=== PATIENT | female | born 1935 | race Caucasian/White ===

== ENCOUNTER 2019-04-29 12:37 | Inpatient (IN) | payer MEDICARE, MEDICAID ==
[~2019-04-29] VITALS: Ht 165.1 cm; Wt 65.8 kg
[2019-04-29] MEDS ORDERED: SODIUM CHLORIDE 0.9% 500 ML IV ONE (13:08)
[2019-04-29 14:30] LABS: BASOPHILS % 0.8 % (0.0-2.0); EOSINOPHILS % 3.1 % (0.0-5.0); LYMPHOCYTES % 17.4 % (20.0-50.0); MEAN CORPUSCULAR HEMOGLOBIN 28.5 pg (28.0-32.0); MEAN CORPUSCULAR VOLUME 85.9 fL (81.0-99.0); MEAN PLATELET VOLUME 8.1 fl (7.4-10.4); MONOCYTES % 10.8 % (2.0-8.0); NEUTROPHILS % 67.9 % (40.0-76.0); PLATELET 375 x1000/uL (130-400); RED BLOOD CELL COUNT 2.17 mill/uL (4.2-5.4)
[2019-04-29 14:33] LABS: HEMATOCRIT. 18.6 % (36.0-48.0); HEMOGLOBIN. 6.2 g/dL (12.0-16.0)
[2019-04-29 14:37] LABS: CHLORIDE 111 mEq/L (98-107)
[2019-04-29 14:40] LABS: PARTIAL THROMBOPLASTIN TIME 26.4 sec (23.4-31.0); PROTHROMBIN TIME 10.5 sec (9.6-11.0)
[2019-04-29 14:43] LABS: PHOSPHORUS 7.7 mg/dL (2.5-4.9)
[2019-04-29 16:30] VITALS: BP 169/65
[2019-04-29 17:00] VITALS: BP 169/65
[2019-04-29] MEDS ORDERED: NITROGLYCERIN 0.4MG TABLET SL SL PRN ×2 (17:45)
[2019-04-29] MEDS ORDERED: LORAZEPAM 0.5MG TABLET PO PRN (18:00)
[2019-04-29] MEDS ORDERED: IPRATROPIUM/ALBUTEROL 0.5-3(2.5)MG/3ML NEB INH PRN (18:00)
[2019-04-29] MEDS ORDERED: ONDANSETRON HCL 4MG/2ML INJ IV PRN (18:00)
[2019-04-29] MEDS ORDERED: SODIUM CHLORIDE 0.45% 1,000 ML IV SCH (18:00)
[2019-04-29] MEDS ORDERED: DOCUSATE SODIUM 100MG CAPSULE PO PRN (18:00)
[2019-04-29] MEDS ORDERED: ACETAMINOPHEN 325MG TABLET PO PRN (18:00)
[2019-04-29] MEDS ORDERED: ENOXAPARIN 40MG/0.4ML SYR SUBCUT SCH (18:00)
[2019-04-29] MEDS: CALCIUM ACETATE 667MG CAPSULE PO SCH (18:50)
[2019-04-29] MEDS: CLONIDINE 0.1MG TABLET PO PRN ×2 (18:51→23:05)
[2019-04-29] MEDS ORDERED: TRAMADOL 50MG TABLET PO PRN (19:15)
[2019-04-29] MEDS ORDERED: MEDICATION NOT ON FORMULARY EA XX SCH (19:15)
[2019-04-29 20:21] VITALS: BP 161/49
[2019-04-29 20:23] VITALS: BP 156/43
[2019-04-29 20:45] VITALS: BP 170/65
[2019-04-29] MEDS: CARVEDILOL 6.25 MG TABLET PO SCH (21:06)
[2019-04-29 22:50] VITALS: BP 164/57
[2019-04-30] VITALS (11 sets, daily range): BP systolic 105–171; BP diastolic 42–62
[2019-04-30 00:55] LABS: CREATINE KINASE MB FRACTION 1.9 ng/mL (0.5-3.6)
[2019-04-30 07:03] LABS: BASOPHILS % 0.9 % (0.0-2.0); HEMATOCRIT. 22.7 % (36.0-48.0); HEMOGLOBIN. 7.6 g/dL (12.0-16.0); MEAN CORPUSCULAR HEMOGLOBIN 29.2 pg (28.0-32.0); MEAN CORPUSCULAR VOLUME 86.8 fL (81.0-99.0); MEAN PLATELET VOLUME 8.3 fl (7.4-10.4); NEUTROPHILS % 72.1 % (40.0-76.0); PLATELET 294 x1000/uL (130-400); RED BLOOD CELL COUNT 2.61 mill/uL (4.2-5.4); RED CELL DISTRIBUTION WIDTH 16.7 % (11.6-14.6)
[2019-04-30 07:23] LABS: CHLORIDE 116 mEq/L (98-107)
[2019-04-30 07:45] LABS: AMYLASE 90 IU/L (25-115)
[2019-04-30 07:51] LABS: CREATINE KINASE MB FRACTION 1.5 ng/mL (0.5-3.6)
[2019-04-30] MEDS ORDERED: ALLOPURINOL 100 MG TABLET PO SCH (09:00)
[2019-04-30] MEDS: LACTULOSE 20G/30ML UDC PO SCH ×2 (10:00→13:23)
[2019-04-30] MEDS: CALCIUM ACETATE 667MG CAPSULE PO SCH ×3 (10:04→18:15)
[2019-04-30] MEDS: CARVEDILOL 6.25 MG TABLET PO SCH (10:05)
[2019-04-30 10:36] LABS: TOTAL IRON BINDING CAPACITY 249 ug/dL (250-450)
[2019-04-30 12:43] LABS: CLARITY URINE CLEAR (CLEAR); COLOR URINE YELLOW (YELLOW); KETONES URINE NEGATIVE (NEGATIVE); LEUKOCYTE ESTERASE URINE NEGATIVE (NEGATIVE); NITRITE URINE NEGATIVE (NEGATIVE); OCCULT BLOOD URINE NEGATIVE (NEGATIVE); PROTEIN URINE 1+ (NEGATIVE); SPECIFIC GRAVITY URINE 1.014 (1.005-1.030); UROBILINOGEN URINE 0.2 E.U./dL (0.2-1.0)
[2019-04-30] MEDS: CLONIDINE 0.1MG TABLET PO PRN (13:21)
[2019-04-30] MEDS ORDERED: FERROUS SULFATE 325MG TABLET PO SCH (17:50)
[2019-04-30] MEDS ORDERED: EPOETIN ALFA 10000UNITS/ML VIAL SUBCUT NR (21:00)
== END 2019-04-30 18:30 | disposition home or self-care (01) | DRG 194 ==
LOC: ER 12:37 → 6WST 14:22 → EDBEDREQ 14:24 → ENRESERV 15:24
PROVIDERS: ADMIT Internal Medicine Nephrology; ATTEND Internal Medicine Nephrology
PROC: 30233N1 Transfusion of Nonautologous Red Blood Cells into Peripheral Vein, Percutaneous Approach (ICD-10-PCS; principal; 2019-04-29)
DX: I13.2 Hypertensive heart and chronic kidney disease with heart failure and with stage 5 chronic kidney disease, or end stage renal disease (principal); K85.90 Acute pancreatitis without necrosis or infection, unspecified; E11.22 Type 2 diabetes mellitus with diabetic chronic kidney disease; I48.0 Paroxysmal atrial fibrillation; N18.6 End stage renal disease; E11.319 Type 2 diabetes mellitus with unspecified diabetic retinopathy without macular edema; D63.1 Anemia in chronic kidney disease; E83.39 Other disorders of phosphorus metabolism; I50.32 Chronic diastolic (congestive) heart failure; I20.9 Angina pectoris, unspecified; G47.00 Insomnia, unspecified; H40.9 Unspecified glaucoma; G89.29 Other chronic pain; M54.5 Low back pain; E11.39 Type 2 diabetes mellitus with other diabetic ophthalmic complication; H42 Glaucoma in diseases classified elsewhere; M48.00 Spinal stenosis, site unspecified; M19.90 Unspecified osteoarthritis, unspecified site; F41.1 Generalized anxiety disorder; N25.81 Secondary hyperparathyroidism of renal origin; R07.89 Other chest pain; K59.00 Constipation, unspecified; I45.10 Unspecified right bundle-branch block; Z90.710 Acquired absence of both cervix and uterus; Z90.49 Acquired absence of other specified parts of digestive tract; Z98.49 Cataract extraction status, unspecified eye; Z79.82 Long term (current) use of aspirin; Z79.84 Long term (current) use of oral hypoglycemic drugs; Z79.899 Other long term (current) drug therapy
CPT/HCPCS: 36415; 71045; 80048; 82150; 82270; 82553; 82728; 82962; 83540; 83550; 83735; 83880; 83970; 84100; 84484; 84550; 85018; 86803; 86850; 86900; 86920; 87340; 93005; 93970; 96360; 96361; 99285; J7040; J7050; P9016

== ENCOUNTER 2020-10-28 11:17 | Emergency (ER) | payer MEDICARE, MEDICAID ==
[~2020-10-28] VITALS: Ht 165.1 cm; Wt 80.0 kg
[2020-10-28] MEDS ORDERED: LABETALOL HCL 20MG/4ML CARPUJECT IV ONE (12:00)
[2020-10-28] MEDS ORDERED: LABETALOL 5MG/ML SYR 20 MG/4 ML SYRINGE IV NR (12:15)
[2020-10-28] MEDS ORDERED: AZITHROMYCIN 500 MG in DEXT 5% WATER 250 ML IV ONE (12:45)
[2020-10-28] MEDS ORDERED: CEFTRIAXONE 2 G PREMIX 50 ML IV ONE (12:45)
[2020-10-28 12:50] LABS: BASOPHILS % 0.7 % (0.0-2.0); EOSINOPHILS % 0.9 % (0.0-5.0); HEMATOCRIT. 33.4 % (36.0-48.0); HEMOGLOBIN. 11.3 g/dL (12.0-16.0); LYMPHOCYTES % 11.7 % (20.0-50.0); MEAN CORPUSCULAR HEMOGLOBIN 30.9 pg (28.0-32.0); MEAN CORPUSCULAR VOLUME 91.3 fL (81.0-99.0); MEAN PLATELET VOLUME 8.6 fl (7.4-10.4); MONOCYTES % 7.1 % (2.0-8.0); NEUTROPHILS % 79.6 % (40.0-76.0); PLATELET 242 x1000/uL (130-400); RED BLOOD CELL COUNT 3.66 mill/uL (4.2-5.4); RED CELL DISTRIBUTION WIDTH 14.7 % (11.6-14.6)
[2020-10-28 12:52] LABS: CHLORIDE 104 mEq/L (98-107)
[2020-10-28 16:22] VITALS: BP 160/85
== END 2020-10-28 17:42 | disposition left against medical advice (07) ==
LOC: ER 11:31 → CANBEDREQ 17:54
DX: J96.91 Respiratory failure, unspecified with hypoxia (principal); I10 Essential (primary) hypertension
CPT/HCPCS: 36415; 71045; 80053; 83880; 84484; 85025; 93005; 96365; 99285; J0456; J0696; J7060; J3490